=== PATIENT | female | born 1960 | race Caucasian/White ===

== ENCOUNTER 2020-06-14 14:34 | Emergency (ER) | payer SELFPAY ==
[~2020-06-14] VITALS: Ht 162.6 cm; Wt 100.9 kg
[2020-06-14 15:29] LABS: BASO # 0.1 (0.0-0.2); BASO % 1.2 % (0.0-2.0); EOS # 0.2 (0.0-0.7); EOS % 2.5 % (0-4.0); GRAN # 3.3 (1.4-6.5); HEMOGLOBIN 13.5 g/dl (12.5-16.0); LYMPH # 2.3 (1.2-3.4); LYMPH % 36.4 % (20.0-51.0); MEAN CELL VOLUME 92 fl (80.0-100.0); MEAN CORPUSCULAR HEMOGLOBIN 30 pg (27.0-31.0); MEAN CORPUSCULAR HGB CONC 32 g/dl (33.0-37.0); MEAN PLATELET VOLUME 9.5 fl (7.4-10.4); MONO # 0.5 (0.1-0.6); MONO % 7.6 % (1.7-9.3); PLATELET COUNT 344 K/mm3 (130-400); RED BLOOD COUNT 4.55 M/mm3 (4.10-5.30); REDCELL DISTRIBUTION WIDTH-CV 12.9 % (11.5-14.5)
[2020-06-14 15:45] LABS: ALBUMIN 3.9 gm/dL (3.5-5.0); BILIRUBIN,TOTAL 0.3 mg/dL (0.0-1.0); CALCIUM 8.9 mg/dL (8.4-10.2); CREATININE, serum 0.58 (0.52-1.25); POTASSIUM 4.4 mmol/L (3.4-5.0); TOTAL PROTEIN 6.9 gm/dL (6.4-8.2)
[2020-06-14] MEDS ORDERED: NEXIUM 20MG20 MG PO (16:33)
[2020-06-14 16:52] VITALS: BP 137/99; PULSE 70; TEMP 98
== END 2020-06-14 16:56 | disposition home or self-care (01) ==
LOC: COL.ER 14:34
PROVIDERS: Emergency Medicine
DX: R10.9 Unspecified abdominal pain (principal); R05 Cough; R06.02 Shortness of breath; Z20.828 Contact with and (suspected) exposure to other viral communicable diseases; Z88.6 Allergy status to analgesic agent
CPT/HCPCS: C9113; J2550; J7030

== ENCOUNTER 2021-02-02 09:10 | Emergency (ER) | payer SELFPAY ==
[~2021-02-02] VITALS: Ht 162.6 cm; Wt 104.5 kg
[~2021-02-02 09:10] MED LIST: NEXIUM 20MG20 MG PO
[2021-02-02 09:30] VITALS: TEMP 98.3
[2021-02-02] MEDS ORDERED: FLEXERIL 1010 MG/TAB PO (10:48)
[2021-02-02] MEDS ORDERED: MEDROL 4MG DOSPA4 MG PO (10:48)
[2021-02-02 11:45] VITALS: BP 131/86; PULSE 65
== END 2021-02-02 11:45 | disposition home or self-care (01) ==
LOC: COL.ER 09:10
DX: S39.012A Strain of muscle, fascia and tendon of lower back, initial encounter (principal); Z88.6 Allergy status to analgesic agent; Z90.710 Acquired absence of both cervix and uterus; X50.1XXA Overexertion from prolonged static or awkward postures, initial encounter
CPT/HCPCS: J1170; J1885; J3360

== ENCOUNTER 2022-09-12 09:36 | Emergency (ER) | payer SELFPAY ==
[~2022-09-12] VITALS: Ht 165.1 cm; Wt 109.1 kg
[~2022-09-12 09:36] MED LIST changes: +FLEXERIL 1010 MG/TAB PO; +MEDROL 4MG DOSPA4 MG PO
[2022-09-12 10:55] LABS: BASO % 0.4 % (0.0-2.0); EOS % 0.2 % (0.0-4.0); GRAN # 3.5 K/mm3 (1.4-6.5); GRAN % 69.8 % (42.2-75.2); HEMATOCRIT 41.8 % (37.0-47.0); HEMOGLOBIN 13.7 g/dl (12.5-16.0); MEAN CELL VOLUME 90 fl (80.0-100.0); MEAN CORPUSCULAR HEMOGLOBIN 29 pg (27-31); MEAN CORPUSCULAR HGB CONC 33 g/dl (33.0-37.0); MEAN PLATELET VOLUME 9.4 fl (7.4-10.4); MONO # 0.5 K/mm3 (0.1-0.6); MONO % 9.4 % (1.7-9.3); PLATELET COUNT 252 K/mm3 (130-400); RED BLOOD COUNT 4.67 M/mm3 (4.10-5.30); REDCELL DISTRIBUTION WIDTH-CV 13.3 % (11.5-14.5)
[2022-09-12 11:16] LABS: CREATININE, serum 0.75 mg/dL (0.57-1.11)
[2022-09-12] MEDS ORDERED: FLONASEALLERGY NS (11:58)
[2022-09-12] MEDS ORDERED: AMOXICILLIN 8751 TAB PO (11:58)
[2022-09-12] MEDS ORDERED: NAPROSYN500 MG PO (11:58)
[2022-09-12 12:25] VITALS: BP 104/76; PULSE 85; TEMP 99.1
== END 2022-09-12 12:28 | disposition home or self-care (01) ==
LOC: COL.ER 09:36
PROVIDERS: Emergency Medicine
DX: J01.90 Acute sinusitis, unspecified (principal); F17.200 Nicotine dependence, unspecified, uncomplicated; Z28.310 Unvaccinated for COVID-19; Z88.5 Allergy status to narcotic agent